=== PATIENT | female | born 1995 | race Caucasian/White ===

== ENCOUNTER → 2019-09-10 12:15 | Outpatient (BNVA) | payer OTHER, SELFPAY | PROVIDERS: PCP Nurse Practitioner; Visit Provider Nurse Practitioner | DX: S63.501A Unspecified sprain of right wrist, initial encounter (principal); X50.9XXA Other and unspecified overexertion or strenuous movements or postures, initial encounter; Y99.0 Civilian activity done for income or pay; M25.531 Pain in right wrist | CPT/HCPCS: 73110 ==

== ENCOUNTER → 2019-11-07 10:19 | Outpatient (BNVA) | payer OTHER, SELFPAY | PROVIDERS: PCP Nurse Practitioner; Visit Provider Counselor Professional | DX: F31.32 Bipolar disorder, current episode depressed, moderate (principal); F41.1 Generalized anxiety disorder | CPT/HCPCS: 90834 ==

== ENCOUNTER → 2019-11-13 09:13 | Outpatient (BNVA) | payer SELFPAY | PROVIDERS: PCP Nurse Practitioner; Visit Provider Psychiatry & Neurology Psychiatry | DX: F31.81 Bipolar II disorder (principal) | CPT/HCPCS: 99204 ==

== ENCOUNTER → 2019-11-14 13:11 | Outpatient (BNVA) | payer SELFPAY | PROVIDERS: PCP Nurse Practitioner; Visit Provider Counselor Professional | DX: F31.81 Bipolar II disorder (principal) | CPT/HCPCS: 90832 ==

== ENCOUNTER → 2019-11-22 09:06 | Outpatient (BNVA) | payer SELFPAY | PROVIDERS: PCP Nurse Practitioner; Visit Provider Counselor Professional | DX: F31.81 Bipolar II disorder (principal) | CPT/HCPCS: 90834 ==

== ENCOUNTER → 2019-11-30 08:25 | Outpatient (BNVA) | payer SELFPAY | PROVIDERS: PCP Nurse Practitioner; Visit Provider Counselor Professional | DX: F31.81 Bipolar II disorder (principal) | CPT/HCPCS: 90834 ==

== ENCOUNTER → 2019-12-01 08:29 | Outpatient (BNVA) | payer SELFPAY | PROVIDERS: PCP Nurse Practitioner; Visit Provider Psychiatry & Neurology Psychiatry | DX: F31.81 Bipolar II disorder (principal) | CPT/HCPCS: 99213 ==

== ENCOUNTER → 2020-01-10 07:58 | Outpatient (BNVA) | payer SELFPAY | PROVIDERS: PCP Nurse Practitioner; Visit Provider Psychiatry & Neurology Psychiatry | DX: F31.81 Bipolar II disorder (principal) | CPT/HCPCS: 99214 ==

== ENCOUNTER → 2020-03-28 08:14 | Outpatient (BNVA) | payer SELFPAY | PROVIDERS: PCP Nurse Practitioner; Visit Provider Psychiatry & Neurology Psychiatry | DX: F31.81 Bipolar II disorder (principal); F60.3 Borderline personality disorder | CPT/HCPCS: 99214 ==

== ENCOUNTER → 2020-07-03 11:26 | Outpatient (BNVA) | payer OTHER, SELFPAY | PROVIDERS: PCP Nurse Practitioner; Visit Provider Nurse Practitioner Family | DX: Z11.59 Encounter for screening for other viral diseases (principal); J06.9 Acute upper respiratory infection, unspecified | CPT/HCPCS: 87635 ==

== ENCOUNTER 2020-12-08 19:33 | Emergency (ER) | payer SELFPAY ==
[2020-12-08 19:38] VITALS: BP 155/115; PULSE 100; RESP 18; TEMP 36.6; O2SAT 97; BMI 38.7
[2020-12-08 19:45] VITALS: BP 128/87; PULSE 97; RESP 16; O2SAT 95
--- NOTE | 2020-12-08 19:49 | W.ED.ABDPA2 ---
HPI - Abdominal Pain General: Chief Complaint: Abdominal Pain Stated Complaint: UPPER ABD PAIN/UNDER L BREAST--SENT BY [facility] [place] Time Seen by Provider: 12/08/20 19:38 Source: patient Mode of arrival: ambulatory Limitations: no limitations History of Present Illness: HPI narrative: Patient is a 25-year-old female who presents to ED today after she was sent here from urgent care for further evaluation for left-sided abdominal pain. Patient tells me pain has been present over the past 2 to 3 weeks. She feels like pain is progressively worsening. She is not having any nausea or vomiting. She had a few episodes of non-bloody diarrhea a few days ago but none since. She has otherwise had normal bowel movements. She reports low-grade fevers of 99.0. She reports some mild dysuria at the start of her urine stream but states this improves midstream. She has not noticed any hematuria. She is not complaining of flank pain. UA at urgent care did not look suspicious for UTI. She denies vaginal bleeding, vaginal discharge, vaginal odor. Previous history of tubal ligation. MD elicited complaint: abdominal pain Pertinent past history: none Onset (ago): week(s) Pain Consistency: constant Location: LUQ, LLQ and Other (lower abdomen ) Exacerbating factors: nothing Relieving factors: nothing Associated Symptoms: Reports diarrhea (few episodes several days ago but none since), dysuria (at start of stream but improves) and fever(s) (reports low grade 99.0); Denies chills, heartburn, hematochezia, hematuria, hematemesis, melena, nausea, syncope and vomiting Related Data: Patient : No Review of Systems Const: Reports: fever(s) (reports low grade 99.0); Denies: chills, body aches, fatigue or malaise ENMT: Denies: throat pain or odynophagia Card: Denies: chest pain, palpitations, irregular heart rhythm, edema, swelling of feet/ankles, lightheadedness, syncope, pre-syncope, dyspnea on exertion or orthopnea Resp: Denies: dyspnea, productive cough, non-productive cough, wheezing, pain on inspiration, hemoptysis or chest congestion GI: Reports: abdominal pain and diarrhea (few episodes several days ago but none since); Denies: nausea, vomiting, hematemesis, heartburn, pain on defecation, hematochezia or melena : Reports: dysuria (at start of stream but improves); Denies: flank pain, difficulty voiding, urinary frequency, hematuria, genital lesions, genital pruritis, vaginal odor, vaginal bleeding, vaginal discharge or pelvic pain Musc: Denies: neck pain, back pain, extremity pain, extremity swelling, joint pain or joint swelling Skin/Breast: Denies: rash Neuro: Denies: headache(s) or dizziness PFSH ED PFSH: Social History (Updated 09/20/19 @ 08:01 by Seema Dozier LPN) Smoking and tobacco status: never smoked Alcohol intake: never 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 Female Reproductive History: : 3 Physical Exam Const: COMMON NORMALS: no acute distress, patient oriented x3, no limitations and alert GENERAL APPEARANCE: cooperative NUTRITIONAL APPEARANCE: obese ORIENTATION/CONSCIOUSNESS: Yes awake, Yes oriented to person, Yes oriented to place and Yes oriented to time HENMT: COMMON NORMALS: normocephalic and atraumatic HEAD & SCALP: normocephalic and atraumatic Chest: COMMONS NORMALS: normal inspection of the chest and normal palpation of entire chest wall Resp: COMMON NORMALS: normal respiratory effort and clear to auscultation bilaterally AUSCULTATION: clear to auscultation bilaterally Cardio: COMMON NORMALS: regular rate and regular rhythm RATE: regular rate RHYTHM: regular rhythm GI: COMMON NORMALS: Normal to inspection, nondistended, normoactive bowel sounds present, Soft to palpation, No hepatosplenomegaly present and no masses INSPECTION: Yes normal to inspection AUSCULTATION: Yes normoactive bowel sounds PALPATION: Yes Soft to palpation, Yes Tenderness to palpation present (GI) Details: LLQ and LUQ and Yes No hepatosplenomegaly present : COMMON NORMALS: Yes no CVA tenderness BLADDER/KIDNEY EXAM: Yes no CVA tenderness Back/Pelvis: COMMON NORMALS: no CVA tenderness, thoracic and lumbar spine normal to inspection, no thoracic nor lumbar tenderness and thoraco-lumbar ROM normal Extremity: COMMON NORMALS: normal to inspection GENERAL: Yes normal exam except as noted Neuro: COMMON NORMALS: patient oriented x3 SENSORIUM/ORIENTATION: Yes alert, Yes oriented to person, Yes oriented to place and Yes oriented to time Skin: COMMON NORMALS: no rashes or lesions noted GENERAL SKIN EXAM: no rashes or lesions noted Course Vital Signs: Vital signs: Vital Signs Temperature 97.8 F 12/08/20 19:38 Pulse Rate 85 12/08/20 21:04 Respiratory Rate 14 12/08/20 21:04 Blood Pressure 134/71 12/08/20 21:04 Pulse Oximetry 98 12/08/20 21:04 MDM - Abdominal Pain MDM Narrative: Medical decision making narrative: Patient's vital signs are stable. She does not appear in any acute distress. Labs and urine are unremarkable. CT scan showing no acute intra-abdominal/pelvic pathology. She is stable for discharge with follow-up with PCP. Strict return to ED precautions given. Lab Data: Attestation: I reviewed the patient's lab results. Labs: Lab Results 12/08/20 12/08/20 12/08/20 Range/Units 20:10 20:10 20:10 WBC 9.9 (4.0-10.0) 10^3/ uL RBC 5.30 (4.1-5.3) 10^6/u L Hgb 12.6 (11.5-15.3) g/dL Hct 40.9 (37.0-47.0) % MCV 77.2 L (81-99) fL MCH 23.8 L (28.0-34.0) pg MCHC 30.8 (30.0-36.0) g/dL RDW 15.5 H (12.1-15.1) % Plt Count 309 (130-400) 10^3/c mm MPV 11.5 H (7.4-10.4) fL Neut % (Auto) 54.4 % Lymph % (Auto) 37.2 % [place] % (Auto) 4.5 % Eos % (Auto) 3.2 % Baso % (Auto) 0.5 % Neut # (Auto) 5.38 (1.8-7.7) 10^3/u L Lymph # (Auto) 3.7 (0.8-4.8) 10^3/u L [place] # (Auto) 0.5 (0.2-0.9) 10^3/u L Eos # (Auto) 0.3 (0.0-0.8) 10^3/u L Baso # (Auto) 0.1 (0.0-0.1) 10^3/u L Nucleated RBC % (a uto) 0 % Nucleated RBCs # 0.0 /100WBC Sodium 143 (136-145) mmol/L Potassium 4.0 (3.5-5.1) mmol/L Chloride 107 (98-107) mmol/L Carbon Dioxide 27 (22-29) mmol/L Anion Gap 13.0 (5-19) BUN 10 (6-20) mg/dL Creatinine 0.5 (0.5-0.9) mg/dL GFR Calculation 149.1 H (90-130) mL/min Glucose 118 H (65-115) mg/dL Calculated Osmolal ity 296 H (285-295) mOsm/k g Calcium 9.3 (8.5-10.5) mg/dL Total Bilirubin 0.2 (0.15-1.2) mg/dL AST 26 (0-32) U/L ALT 35 H (0-33) U/L Alkaline Phosphata se 62 (35-105) IU/L Total Protein 8.0 (6.6-8.7) g/dL Albumin 4.8 (3.5-5.2) g/dL Globulin 3.2 (1.3-4.6) g/dL Lipase 45 (13-60) U/L HCG, Qual (Negative) Urine Color (Yellow) Urine Appearance (CLEAR) Urine pH (5-7) Ur Specific Gravit y (1.005-1.030) Urine Protein (Negative) Urine Glucose (UA) (Normal) Urine Ketones (Negative) Urine Blood (Negative) Urine Nitrate (Negative) Urine Bilirubin (Negative) Urine Urobilinogen (Negative) mg/dL Ur Leukocyte Pia ase (Negative) Urine HCG, Qual Cancelled 12/08/20 12/08/20 Range/Units 20:10 20:38 WBC (4.0-10.0) 10^3/ uL RBC (4.1-5.3) 10^6/u L Hgb (11.5-15.3) g/dL Hct (37.0-47.0) % MCV (81-99) fL MCH (28.0-34.0) pg MCHC (30.0-36.0) g/dL RDW (12.1-15.1) % Plt Count (130-400) 10^3/c mm MPV (7.4-10.4) fL Neut % (Auto) % Lymph % (Auto) % [place] % (Auto) % Eos % (Auto) % Baso % (Auto) % Neut # (Auto) (1.8-7.7) 10^3/u L Lymph # (Auto) (0.8-4.8) 10^3/u L [place] # (Auto) (0.2-0.9) 10^3/u L Eos # (Auto) (0.0-0.8) 10^3/u L Baso # (Auto) (0.0-0.1) 10^3/u L Nucleated RBC % (a uto) % Nucleated RBCs # /100WBC Sodium (136-145) mmol/L Potassium (3.5-5.1) mmol/L Chloride (98-107) mmol/L Carbon Dioxide (22-29) mmol/L Anion Gap (5-19) BUN (6-20) mg/dL Creatinine (0.5-0.9) mg/dL GFR Calculation (90-130) mL/min Glucose (65-115) mg/dL Calculated Osmolal ity (285-295) mOsm/k g Calcium (8.5-10.5) mg/dL Total Bilirubin (0.15-1.2) mg/dL AST (0-32) U/L ALT (0-33) U/L Alkaline Phosphata se (35-105) IU/L Total Protein (6.6-8.7) g/dL Albumin (3.5-5.2) g/dL Globulin (1.3-4.6) g/dL Lipase (13-60) U/L HCG, Qual Negative (Negative) Urine Color Yellow (Yellow) Urine Appearance Clear (CLEAR) Urine pH 5 (5-7) Ur Specific Gravit y 1.030 (1.005-1.030) Urine Protein Neg (Negative) Urine Glucose (UA) Norm (Normal) Urine Ketones Negative (Negative) Urine Blood Neg (Negative) Urine Nitrate Negative (Negative) Urine Bilirubin Neg (Negative) Urine Urobilinogen Norm (Negative) mg/dL Ur Leukocyte Pia ase Negative (Negative) Urine HCG, Qual Imaging Data ^: CT Abd/Pel: Radiologist's impression: [id number], [place] [address]KV Scan ReportSigned Patient: Vero Arvizu #: [id number]: [id number]#:[id number]/Sex: 25 / FADM Date: 12/08/20Loc: ERRoom/Bed:Attending Dr: Ordering Provider/Ordering MD: Dalila Medina Date of Service: 12/08/20 Procedure(s): CT abdomen pelvis w con* [id number] Accession Number(s): [id number] Report Number: [id number] PROCEDURE INFORMATION: Exam: CT Abdomen And Pelvis With Contrast Exam date and time: 12/08/2020 7:58 PM Age: 25 years old Clinical indication: Abdominal pain; Localized; Left lower quadrant (llq); Prior surgery; Surgery type: Tubal; Patient HX: C/O L sided abd pain x 3 weeks; Additional info: L abdominal pain TECHNIQUE: Imaging protocol: Computed tomography of the abdomen and pelvis with contrast. Radiation optimization: All CT scans at this facility use at least one of these dose optimization techniques: automated exposure control; mA and/or kV adjustment per patient size (includes targeted exams where dose is matched to clinical indication); or iterative reconstruction. Contrast material: OMNI 300; Contrast volume: 95 ml; Contrast route: INTRAVENOUS (IV); COMPARISON: US pelvic with transvaginal 02/14/2017 8:33 AM RADIATION DOSE METRICS: Total DLP (mGy-cm): 1769.03 FINDINGS: Mediastinal space: A small hiatal hernia is present. Liver: Normal. No mass. Gallbladder and bile ducts: Normal. No calcified stones. No ductal dilation. Pancreas: Normal. No ductal dilation. Spleen: A small accessory splenule is noted in the left upper quadrant. The spleen is unremarkable. Adrenal glands: Normal. No mass. Kidneys and ureters: Normal. No hydronephrosis. Stomach and bowel: Unremarkable. No obstruction. No mucosal thickening. Appendix: No evidence of appendicitis. Intraperitoneal space: Unremarkable. No free air. No significant fluid collection. Vasculature: Unremarkable. No abdominal aortic aneurysm. Lymph nodes: Unremarkable. No enlarged lymph nodes. Urinary bladder: There is thickening of the urinary bladder wall, likely secondary to underdistention. No surrounding inflammatory changes seen. Reproductive: Unremarkable as visualized. Bones/joints: Unremarkable. No acute fracture. Soft tissues: Unremarkable. CT/CT abdomen pelvis w con* [id number] IMPRESSION: No acute intra-abdominal or intrapelvic pathology. Radiation Dose CTDIVOL = (mGy): DLP = 1769.03 (mGy-cm) Dictated By:Chavez Torresed By:Jimenez Torres Date/Time:12/08/202127DD/ 25 Discharge Plan Discharge Patient Disposition: Home Clinical Impression: Abdominal pain of unknown cause Condition: Stable Discharge Orders: Discharge ED (Routine); Ordered 12/08/20 Ordered By: Dalila Medina Patient Instructions: Abdominal Pain (ED) Activity Restrictions/Additional Instructions: As discussed please follow-up with your primary care provider for continued discomfort. You may return to the emergency department at anytime for worsening or severe pain, fevers, repetitive episodes of vomiting or diarrhea, bloody vomit or stools, or any other concerns you may have. I hope you begin to feel better soon. Coding Level of Care Code ED Mechanical Engineering Specialist for Johnyg Fwd Exam Comprehensive
[2020-12-08 20:20] LABS: Basophils # 0.1 10^3/uL (0.0-0.1); Basophils % 0.5 %; Eosinophils # 0.3 10^3/uL (0.0-0.8); Eosinophils % 3.2 %; Hematocrit 40.9 % (37.0-47.0); Hemoglobin 12.6 g/dL (11.5-15.3); Lymphocytes # 3.7 10^3/uL (0.8-4.8); Lymphocytes % 37.2 %; Mean Corpuscular HGB Conc 30.8 g/dL (30.0-36.0); Mean Corpuscular Hemoglobin 23.8 pg (28.0-34.0); Mean Corpuscular Volume 77.2 fL (81-99); Mean Platelet Volume 11.5 fL (7.4-10.4); Monocytes # 0.5 10^3/uL (0.2-0.9); Monocytes % 4.5 %; Neutrophils # 5.38 10^3/uL (1.8-7.7); Neutrophils % 54.4 %; Nucleated Red Blood Cells % 0 %; Platelet Count 309 10^3/cmm (130-400); Red Cell Distribution Width 15.5 % (12.1-15.1); White Blood Count 9.9 10^3/uL (4.0-10.0)
[2020-12-08 20:33] LABS: Alanine Aminotransferase 35 U/L (0-33); Albumin Level 4.8 g/dL (3.5-5.2); Alkaline Phosphatase 62 IU/L (35-105); Aspartate Amino Transferase 26 U/L (0-32); Blood Urea Nitrogen 10 mg/dL (6-20); Calcium 9.3 mg/dL (8.5-10.5); Carbon Dioxide 27 mmol/L (22-29); Chloride 107 mmol/L (98-107); Globulin 3.2 g/dL (1.3-4.6); Glomerular Filtration Rate 149.1 mL/min (90-130); Glucose 118 mg/dL (65-115); Lipase 45 U/L (13-60); Osmolality Calculated 296 mOsm/kg (285-295); Sodium 143 mmol/L (136-145); Total Bilirubin 0.2 mg/dL (0.15-1.2)
[2020-12-08 20:45] LABS: HCG, Serum Qual Negative (Negative)
[2020-12-08 20:47] LABS: Slide Review Slide Review Perform
[2020-12-08] MEDS: iohexol 300 mg/mL 100 mL Btl IV (20:52)
[2020-12-08 20:57] LABS: Add Urine Microscopic? NO; Charge for UA Resulting for Rev
[2020-12-08 20:58] LABS: Urine Appearance Clear (CLEAR); Urine Color Yellow (Yellow); pH Urine 5 (5-7)
[2020-12-08 20:59] LABS: Bilirubin Urine Neg (Negative); Blood Urine Neg (Negative); Glucose Urine UA Norm (Normal); Ketones Urine Negative (Negative); Leukocyte Esterase Urine Negative (Negative); Nitrate Urine Negative (Negative); Protein Urine Neg (Negative); Urobilinogen Urine Norm (Negative)
[2020-12-08 21:04] VITALS: BP 134/71; PULSE 85; RESP 14; O2SAT 98
[2020-12-08 22:12] VITALS: PULSE 78; RESP 15; O2SAT 96
[2020-12-08 22:15] VITALS: BP 132/80; PULSE 79; RESP 17; O2SAT 98
== END 2020-12-08 22:17 | disposition home or self-care (01) ==
PROVIDERS: Emergency Provider Physician Assistant
DX: R10.9 Unspecified abdominal pain (principal)
CPT/HCPCS: 74177; 80053; 81000; 81003; 83690; 84703; 85025; 99283; Q9967

== ENCOUNTER → 2021-07-06 14:28 | Outpatient (BNVA) | payer MEDICAID, SELFPAY | PROVIDERS: Visit Provider Family Medicine | DX: N39.0 Urinary tract infection, site not specified (principal); Z20.2 Contact with and (suspected) exposure to infections with a predominantly sexual mode of transmission; R30.0 Dysuria | CPT/HCPCS: 81000; 87491; 87591; 87661 ==

== ENCOUNTER 2021-10-28 14:25 | Emergency (ER) | payer SELFPAY ==
[2021-10-28 14:32] VITALS: BP 156/100; PULSE 91; RESP 18; TEMP 36.4; O2SAT 98; BMI 40.3
--- NOTE | 2021-10-28 14:36 | ED_ITS ---
HPI - Back Pain/Injury General: Chief Complaint: Back Pain/Injury Stated Complaint: severe back pain Time Seen by Provider: 10/28/21 14:28 Source: patient Mode of arrival: ambulatory Limitations: no limitations History of Present Illness: Patient is a 26-year-old female presents to ED today with complaint of mid back pain. Patient states 3 days ago she was jumping on the trampoline with her children and states when she she came down she felt like her back stretched out and then snapped back. Patient states since then she has been having intermittent pains to her mid back worse with movement. She has no radicular symptoms. No numbness, tingling, loss of sensation. She does not complain of chest pain or abdominal pains. Denies lightheadedness, dizziness. MD elicited complaint: back pain Onset (ago): day(s) Timing: intermittent Severity: moderate Similar Symptoms Previously: No Location: thoracic spine Radiation: none Exacerbating factors: movement Relieving factors: immobilization and sitting upright Associated symptoms: Reports no associated symptoms; Deny abdominal pain, chills, difficulty walking, dysuria, fatigue, fever(s), hematuria or syncope Work related injury: No Review of Systems Const: Denies: fever(s), chills, body aches, fatigue or malaise Eyes: Denies: change in vision Card: Denies: chest pain, palpitations, irregular heart rhythm, edema, lightheadedness, syncope or pre-syncope Resp: Denies: dyspnea GI: Denies: abdominal pain : Denies: flank pain, dysuria or hematuria Musc: Reports: back pain; Denies: neck pain, extremity pain or joint pain Skin/Breast: Denies: rash Neuro: Denies: headache(s), numbness in extremities, weakness in extremities, sensory changes or difficulty walking PFS ED PFSH: Social History Smoking and tobacco status: never smoked Alcohol intake: never 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 Physical Exam Const: COMMON NORMALS: no acute distress, patient oriented x3, no limitations and alert GENERAL APPEARANCE: cooperative NUTRITIONAL APPEARANCE: obese ORIENTATION/CONSCIOUSNESS: Yes awake, Yes oriented to person, Yes oriented to place and Yes oriented to time HENMT: COMMON NORMALS: normocephalic and atraumatic HEAD & SCALP: normocephalic and atraumatic Neck/C-Spine: COMMON NORMALS: full ROM GENERAL: Yes normal visual inspection CERVICAL SPINE: No Cervical spine tenderness and No Paracervical muscle tenderness Resp: COMMON NORMALS: normal respiratory effort and clear to auscultation bilaterally AUSCULTATION: clear to auscultation bilaterally Cardio: COMMON NORMALS: regular rate and regular rhythm RATE: regular rate RHYTHM: regular rhythm : COMMON NORMALS: Yes no CVA tenderness BLADDER/KIDNEY EXAM: Yes no CVA tenderness Back/Pelvis: COMMON NORMALS: no CVA tenderness THORACIC SPINE/UPPER BACK: Yes normal to inspection, Yes pain with ROM, Yes thoracic spinal tenderness, Yes paraspinal muscle tenderness and No paraspinal muscle spasm LUMBAR SPINE/LOWER BACK: Yes normal to inspection PELVIS: Yes buttocks normal SACROILIAC JOINTS: Yes SI joints normal BACK IMAGE (FEMALE): 1. TTP-palpation directly reproduces patient's pain Extremity: COMMON NORMALS: normal to inspection and full ROM GENERAL: Yes normal exam except as noted Neuro: BRANT COMA SCALE: document GCS findings Brant coma scale eye opening: Spontaneous Brant coma scale verbal response: Orientated Brant coma scale motor response: Obey commands [place] coma scale total score: 15 COMMON NORMALS: patient oriented x3, moves all extremities, no focal motor deficits, no sensory deficits noted and gait normal SENSORIUM/ORIENTATION: Yes alert, Yes oriented to person, Yes oriented to place and Yes oriented to time Skin: COMMON NORMALS: no rashes or lesions noted GENERAL SKIN EXAM: no rashes or lesions noted Course Vital Signs: Vital signs: Vital Signs Temperature 97.6 F 10/28/21 14:32 Pulse Rate 91 10/28/21 14:54 Respiratory Rate 18 10/28/21 14:54 Blood Pressure 156/100 10/28/21 14:54 Pulse Oximetry 98 10/28/21 14:54 MDM - Back Pain/Injury Medical Decision Making XRs negative. We will treat for musculoskeletal thoracic sprain. Strict return to ED precautions given. Recommend follow-up with PCP in 3 to 5 days if no improvement. Also discussed alternating ice/heat for discomfort. Labs Radiology Impressions Lumbar Spine X-Ray 10/28/21 15:15 IMPRESSION: No acute findings. Thoracic Spine X-Ray 10/28/21 15:15 IMPRESSION: No acute findings. Discharge Plan Discharge Patient Disposition: Home Clinical Impression: Strain of mid-back Qualifiers: Encounter type: initial encounter Qualified Code(s): S29.012A - Strain of muscle and tendon of back wall of thorax, initial encounter Condition: Stable Prescriptions: New cyclobenzaprine 10 mg tablet 10 mg PO TID Qty: 14 0RF diclofenac sodium 50 mg tablet,delayed release (DR/EC) 50 mg PO Q12H PRN (Reason: pain) Qty: 20 0RF Medrol ([place]) 4 mg tablets,dose pack See Rx Instructions .ROUTE .COMPLEX Qty: 21 0RF Rx Instructions: orally per package directions No Action fluconazole [Diflucan] 150 mg tablet 150 mg PO Q3D Qty: 2 0RF Rx Instructions: start if symptoms persist beyond 48 hours, may repeat second dose 72 hrs after first dose if symptoms persist sulfamethoxazole-trimethoprim [Bactrim DS] 800-160 mg tablet 1 tab PO BID 4 Days Qty: 8 0RF Rx Instructions: start if symptoms persist beyond 48 hours azithromycin 500 mg tablet 1,000 mg PO ONCE 1 Days Qty: 2 0RF Discharge Orders: Discharge ED (Routine); Ordered 10/28/21 Ordered By: Dalila Medina Stand Alone Forms: Work/School Release Coding Level of Care Code ED Milking System Installer for Robert Liu
[2021-10-28 14:54] VITALS: BP 156/100; PULSE 91; RESP 18; O2SAT 98
--- NOTE | 2021-10-28 15:15 | XRR_ITS ---
PROCEDURE INFORMATION: Exam: XR Thoracic Spine Exam date and time: 10/28/2021 3:34 PM Age: 26 years old Clinical indication: Injury or trauma; Blunt trauma (contusions or hematomas) and sprain or strain; Injury details: PT was jumping on trampoline4 days ago and when she went up in the air it felt as if her mid back , when coming back down and upon landing it felt as if her mid back was compressing together TECHNIQUE: Imaging protocol: XR of the thoracic spine. Views: 3 views. COMPARISON: CT abdomen pelvis w con* [id number] 12/08/2020 9:05 PM FINDINGS: Bones/joints: Normal. No acute fracture. Normal alignment. Soft tissues: Unremarkable. XR/XR thoracic spine 3V* [id number] IMPRESSION: No acute findings.
--- NOTE | 2021-10-28 15:15 | XRR_ITS ---
PROCEDURE INFORMATION: Exam: XR Lumbosacral Spine Exam date and time: 10/28/2021 3:34 PM Age: 26 years old Clinical indication: Injury or trauma; Crushing and sprain or strain, lumbar ligaments; Injury details: PT was jumping on trampoline4 days ago and when she went up in the air it felt as if her mid back , when coming back down and upon landing it felt as if her mid back was compressing together TECHNIQUE: Imaging protocol: XR of the lumbosacral spine. Views: 2 or 3 views. COMPARISON: [place] [id number] 12/03/2014 10:02 PM FINDINGS: Bones/joints: Normal. No acute fracture. Normal alignment. Soft tissues: Unremarkable. XR/XR lumbar spine 2-3V* [id number] IMPRESSION: No acute findings.
[2021-10-28 16:45] VITALS: PULSE 94; RESP 16; O2SAT 96
--- NOTE | 2021-10-29 10:25 | DCPLANNER ---
Addendum entered by Mara Wall 11/26/21 15:28: Patient had a follow up appointment scheduled for 10.31.21 was rescheduled. Original Note: manager quantitative had message to speak with patient about getting established with a primary care physician. manager quantitative spoke with patient, she stated that she would like to get established with a female physician. manager quantitative called the office of BALANCE CLERK, Juliana Schaffer, spoke with Betty, gave clinic patients information. manager quantitative called patient and gave patient the appointment information.
== END 2021-10-28 16:46 | disposition home or self-care (01) ==
PROVIDERS: Emergency Provider Physician Assistant
DX: S29.012A Strain of muscle and tendon of back wall of thorax, initial encounter (principal); X50.9XXA Other and unspecified overexertion or strenuous movements or postures, initial encounter; Y93.44 Activity, trampolining
CPT/HCPCS: 72072; 72100; 99282

== ENCOUNTER 2022-05-08 16:02 | Outpatient (CLI) | payer MEDICAID, SELFPAY ==
--- NOTE | 2022-05-08 16:15 | XR_ITS ---
WS: [id number] XR thoracic spine 3V* [id number] REASON FOR EXAM: Chronic Back Pain FINDINGS: Mild mid thoracic scoliosis convex right. No vertebral body abnormality. Intervertebral disc spaces are relatively well-preserved. XR/XR thoracic spine 3V* [id number] IMPRESSION: Mild thoracic scoliosis without focal abnormality. Thoracic spine is unchanged compared to 10/28/2021.
--- NOTE | 2022-05-08 16:15 | XR_ITS ---
WS: [id number] XR lumbar spine 2-3V* [id number] REASON FOR EXAM: Chronic Back Pain FINDINGS: Mild rotatory scoliosis convex right. Mild straightening of the normal lordosis of the lumbar spine. No significant vertebral body abnormality. Intervertebral disc spaces are relatively well-preserved. No significant listhesis. XR/XR lumbar spine 2-3V* [id number] IMPRESSION: Mild rotatory scoliosis and straightening of the normal lordosis of the lumbar spine. Examination is unchanged compared to 10/28/2021.
== END 2022-05-08 16:03 | disposition home or self-care (01) ==
LOC: RAD 16:08
PROVIDERS: PCP Family Medicine; Visit Provider Family Medicine
DX: G89.29 Other chronic pain (principal); M41.84 Other forms of scoliosis, thoracic region; M41.86 Other forms of scoliosis, lumbar region
CPT/HCPCS: 72072; 72100

== ENCOUNTER → 2023-03-25 16:10 | Outpatient (BNVA) | payer MEDICAID, SELFPAY | PROVIDERS: PCP Family Medicine; Referring Provider Nurse Practitioner; Visit Provider Nurse Practitioner Women's Health | DX: N92.6 Irregular menstruation, unspecified (principal); Z12.4 Encounter for screening for malignant neoplasm of cervix | CPT/HCPCS: 84146; 84402; 84702; 88175 ==

== ENCOUNTER → 2023-04-07 11:06 | Outpatient (BNVA) | payer MEDICAID, SELFPAY | PROVIDERS: PCP Family Medicine; Visit Provider Nurse Practitioner Women's Health | DX: N92.6 Irregular menstruation, unspecified (principal); N83.8 Other noninflammatory disorders of ovary, fallopian tube and broad ligament | CPT/HCPCS: 76830 ==

== ENCOUNTER → 2023-05-12 10:00 | Outpatient (BNVA) | payer MEDICAID, SELFPAY | PROVIDERS: PCP Family Medicine; Visit Provider Nurse Practitioner Women's Health | DX: Z20.2 Contact with and (suspected) exposure to infections with a predominantly sexual mode of transmission (principal); Z11.3 Encounter for screening for infections with a predominantly sexual mode of transmission; N76.0 Acute vaginitis | CPT/HCPCS: 87491; 87591; 87806 ==

== ENCOUNTER → 2023-05-13 09:16 | Outpatient (BNVA) | payer MEDICAID, SELFPAY | PROVIDERS: PCP Family Medicine; Visit Provider Nurse Practitioner Women's Health | DX: E28.2 Polycystic ovarian syndrome (principal) | CPT/HCPCS: 86592; 86803; 87340; 87806 ==

== ENCOUNTER → 2023-06-25 15:00 | Outpatient (BNVA) | payer MEDICAID, SELFPAY | PROVIDERS: PCP Family Medicine; Visit Provider Nurse Practitioner Women's Health | DX: Z20.2 Contact with and (suspected) exposure to infections with a predominantly sexual mode of transmission (principal) | CPT/HCPCS: 87491; 87591 ==

== ENCOUNTER → 2023-10-29 14:58 | Outpatient (BNVA) | payer MEDICAID, SELFPAY | PROVIDERS: PCP Family Medicine; Visit Provider Obstetrics & Gynecology | DX: Z11.3 Encounter for screening for infections with a predominantly sexual mode of transmission (principal); N93.9 Abnormal uterine and vaginal bleeding, unspecified | CPT/HCPCS: 87491; 87591 ==

== ENCOUNTER 2023-11-30 09:29 | Observation (INO) | payer MEDICAID, SELFPAY ==
--- NOTE | 2023-11-25 10:44 | ANES.PREANE2 ---
Pre-Anesthetic Assessment Height/Weight: Height 1.68 m Operation Date: 11/30/23 09:00 Proposed Procedures p Total vaginal hysterectomy 73423,N93.9(Not Applicable) - Filiberto Edwards MD Social No alcohol and No tobacco Exam alert, oriented x 3, clear to auscultation bilaterally and regular rate & rhythm Airway Submandibular: within normal limits Cervical ROM: within normal limits Mallampati: Class I History/ROS No significant history except as noted Pulmonary None reported CV/HEM None reported None reported Hepatic None reported Metabolic Morbid Obesity [facility] [place] None reported Anesthetic Plan ASA status: 3 Anesthesia: General Risk of > 500 ml blood loss (7ml/kg in children): Yes, adequate IV access and fluids planned Medications/Allergies Home Medications Medication Instructions Recorded Confirmed Last Taken Type ibuprofen 800 mg tablet 800 mg PO TID pelvic pain, AUB #90 10/29/23 11/22/23 Unknown Rx tabs drospirenone 3 mg-ethinyl 1 tab PO DAILY 11/25/23 1 Day Ago History estradiol 0.03 mg tablet ~11/24/23 Allergies Allergy/AdvReac Type Severity Reaction Status Date / Time No Known Allergies Allergy Verified 11/25/23 10:08 [facility] Anesthesia Medical History Abnormal uterine bleeding (AUB) Hypertriglyceridemia No pertinent past medical history neghx: htn,thyroid,dvt/pe PCP: Tiera De La Rosa Pre-diabetes Surgical History History of tonsillectomy and adenoidectomy H/O tubal ligation (~2017) [place] [facility] [place] Family History Grandmother Breast cancer Maternal Diabetes Ovarian cancer maternal Mother Heart disease Hyperlipidemia Hypertension Thyroid disease Brother Hypertension Sister Hypertension Hyperlipidemia Grandfather Colon cancer maternal Denies family history of Prostate cancer Uterine cancer Stroke Data Anesthesia Cardiac Studies: No Data to Display
[2023-11-25 10:49] LABS: Add Urine Microscopic? NO; Charge for UA Resulting for Rev
[2023-11-25 10:52] LABS: Basophils # 0.1 10^3/uL (0.0-0.1); Basophils % 0.6 %; Eosinophils # 0.3 10^3/uL (0.0-0.8); Eosinophils % 3.5 %; Hematocrit 35.3 % (36-47); Lymphocytes # 3.1 10^3/uL (0.8-4.8); Lymphocytes % 39.5 %; Mean Corpuscular HGB Conc 31.2 g/dL (30-55); Mean Corpuscular Hemoglobin 23.2 pg (27-33); Mean Corpuscular Volume 74.3 fl (85-98); Mean Platelet Volume 10.6 fL (7.4-10.4); Monocytes # 0.4 10^3/uL (0.2-0.9); Monocytes % 5.5 %; Neutrophils # 3.93 10^3/uL (1.8-7.7); Neutrophils % 50.5 %; Nucleated Red Blood Cells % 0 %; Platelet Count 381 10^3/cmm (157-399); Red Blood Count 4.75 10^6/uL (3.85-5.65); Red Cell Distribution Width 14.3 % (12.1-15.1); White Blood Count 7.79 10^3/uL (3.29-11.43)
[2023-11-25 10:56] LABS: Bilirubin Urine Neg (Negative); Blood Urine Neg (Negative); Glucose Urine UA Norm (Normal); Ketones Urine Negative (Negative); Leukocyte Esterase Urine Negative (Negative); Nitrate Urine Negative (Negative); Protein Urine Neg (Negative); Specific Gravity, Urine 1.025 (1.005-1.030); Urine Appearance Clear (CLEAR); Urine Color Yellow (Yellow); Urobilinogen Urine Norm (Negative); pH Urine 6 (5-7)
[2023-11-25 11:11] LABS: Alanine Aminotransferase 10 U/L (0-33); Albumin Level 3.9 g/dL (3.5-5.2); Alkaline Phosphatase 59 U/L (35-105); Aspartate Amino Transferase 12 U/L (0-32); Potassium 3.9 mmol/L (3.5-5.1); Sodium 142 mmol/L (136-145)
[2023-11-25 11:22] LABS: Anion Gap 15.9 (5-19); Blood Urea Nitrogen 11 mg/dL (6-20); Calcium 9.2 mg/dL (8.5-10.5); Carbon Dioxide 23 mmol/L (22-29); Chloride 108 mmol/L (98-107); Globulin 3.4 g/dL (1.3-4.6); Glomerular Filtration Rate 118.2 mL/min (90-130); Glucose 120 mg/dL (65-115); Osmolality Calculated 297 mOsm/kg (285-295); Total Bilirubin 0.2 mg/dL (0.15-1.2); Total Protein 7.2 g/dL (6.6-8.7)
[2023-11-30] VITALS (18 sets, daily range): BP systolic 103–145; BP diastolic 64–91; PULSE 75–114; RESP 12–23; TEMP 36.3–37.2; O2SAT 90–98; BMI 41.1
[2023-11-30] MEDS: scopolamine 1.5 Patch 1 PATCH TRANSDERMA (06:37)
[2023-11-30] MEDS: sodium chloride 0.9% 500 ML IV (06:38)
[2023-11-30] MEDS: sodium chloride 0.9% 1,000 ML 30 ML IV (06:38)
--- NOTE | 2023-11-30 06:43 | W.PM.OPSUD ---
Surgery/Procedure H&P Update DATE OF PROCEDURE: November 30, 2023 DATE H&P PERFORMED: 11/21/24 H&P UPDATE INFORMATION: I have reviewed H&P completed within last 30 days, I have examined patient prior to procedure and No changes to prior documentation PREOP DIAGNOSIS: Abnormal uterine bleeding, dysmenorrhea, PLANNED PROCEDURE: Operation Date: 11/30/23 07:00 Proposed Procedures p Total vaginal hysterectomy 31828,N93.9(Not Applicable) - Filiberto Edwards MD
--- NOTE | 2023-11-30 06:57 | P.ANESUD_ITS ---
Pre-Anesthetic Update Pre-Anesthetic Assessment: Date of Surgery/Procedure: 11/30/23 Preop Vernell gnosis: Abnormal uterine bleeding, dysmenorrhea, Proposed Procedure: Operation Date: 11/30/23 07:00 Proposed Procedures p Total vaginal hysterectomy 54329,N93.9(Not Applicable) - Filiberto Edwards MD Any changes to Pre-Anesthetic Assessment?: No Last Intake: Intake Last Liquid Date 11/29/23 Last Liquid Time 19:00 Last Solid Date 11/29/23 Last Solid Time 19:00 Vitals: Temperature 97.4 F L 11/30/23 06:08 Temperature Source Temporal Artery S can 11/30/23 06:08 Pulse Rate 89 11/30/23 06:08 Respiratory Rate 18 11/30/23 06:08 Blood Pressure 136/86 11/30/23 06:08 Blood Pressure Roshni n 102 11/30/23 06:08 Pulse Oximetry 96 11/30/23 06:08 Oxygen Delivery Me thod Room Air 11/30/23 06:09 Exam: Pre-Anes Outpt Exam: alert, oriented x 3, clear to auscultation bilaterally and regular rate & rhythm Cardiac Studies: No Data to Display
[2023-11-30 06:59] LABS: OR HCG Qualitative Urine Negative (Negative)
[2023-11-30] MEDS: ceFAZolin 2,000 MG in sodium chloride 0.9% (plus) 50 ML 100 MG IV (07:00)
[2023-11-30] MEDS: lidocaine-epi 2% PF 1:200,000 20 mL SDV INJECTION (07:45)
--- NOTE | 2023-11-30 08:56 | P.OP_ITS ---
Operative Report Date of procedure: November 30, 2023 Pre-op diagnosis: Pelvic pain Dysmenorrhea Polycystic ovarian syndrome Post-op diagnosis: same Procedure done: Total vaginal hysterectomy Specimens removed/disposition: Uterus Surgeon: Filiberto Edwards MD Estimated blood loss (mL): 200 IV fluids (mL): 1,000 Urine output (mL): 300 Complications: none Findings: Enlarged uterus Procedure: After informed consent and risks, benefits, indications and alternatives reviewed with the patient was taken to the operating room. The patient was placed in dorsal lithotomy position prepped, and draped in the usual sterile fashion. The pre-procedure timeout verifying the correct patient, procedure, s ite and side, could not requirements was performed and acknowledge by the OR team. A Burger catheter was placed. A Bookwalter vaginal retractor was placed into the vagina in usual manner visualize the cervix. Cervix was grasped with a single tooth tenaculum and circumferentially infiltrated with 2% lidocaine with epinephrine. Then cervix was circumferentially incised with bovie and the bladder was dissected off the pubovesical cervical fascia anteriorly with a sponge stick and Metzenbaum scissors. The anterior peritoneal reflection was identified and the anterior cul-de-sac was entered sharply with Metzenbaum scissors. The same procedure was performed posteriorly and a posterior colpotomy was made through the posterior cul-de-sac space without difficulty and the posterior blade of the Bookwalter vaginal retractor was advanced posteriorly into the cul-de-sac. At this time, the left and right uterosacral ligaments were isolated and ligated with 0 Vicryl. The LigaSure device was placed over the uterosacral ligaments on either side and was then used in a serial fashion up through the cardinal ligaments bilaterally cross-clamped, cut, and sealed with the LigaSure device. Finally, the uterine arteries were cross-clamped, cut, sealed and ligated with the LigaSure device. Hemostasis was assured. The broad ligaments were then serially clamped, sealed and cut with the LigaSure device on both sides. Excellent hemostasis was visualized. Both cornua were clamped, sealed and cut with the LigaSure device. Then the pedicles were then suture ligated with excellent hemostasis. The uterus was excised and submitted for pathologic evaluation. No other abnormalities were noted in the pelvic cavity. Good hemostasis was assure on both sides. She was given Bludigo IV. The peritoneum was then closed in a pursestring fashion with 0 Vicryl suture. The vaginal cuff angles were closed with [id number] #0 Vicryl suture on both sides and transfixed with the ipsilateral cardinal and uterosacral ligaments. The remainder of the vaginal cuff was closed with #0 Vicryl in a running locked fashion. At this time, instruments were removed from the vagina at hemostasis assured. Burger catheter was noted yielding clear blue urine. The patient was taken out of dorsal lithotomy position and awakened from the general anesthesia. The patient tolerated the procedure well and was taken to the PACU recovery room in a stable condition. Sponge, lap, needle and instruments counts were correct x3.
[2023-11-30] MEDS: fentaNYL 50 mcg/mL INJ 2mL IVP (09:32)
--- NOTE | 2023-11-30 09:50 | ANE.PACU2 ---
Inpatient post-anesthesia follow up: Airway intact: Yes Vital signs: Temperature 99.0 F Pulse Rate 112 Respiratory Rate 17 Blood Pressure 112/70 Pulse Oximetry 95 Oxygen Delivery Me thod Room Air Oxygen Flow Rate 1 Fraction of Inspir ed Oxygen Hydration adequate: Yes Nausea and vomiting: No Pain level: 1 Mental status: Baseline
--- NOTE | 2023-11-30 10:11 | PC.NURSE ---
0955 - EDWIN Kennedy at bedside - VSS upon arrival to floor with axillary temp noted at 99.0
[2023-11-30] MEDS: ondansetron 2 mg/ML SDV 2 mL 4 MG IVP (10:22)
[2023-11-30] MEDS: HYDROcodone-acetaminophen 5-325 mg Tablet PO ×3 (10:23→23:36)
[2023-11-30] MEDS: ketorolac 30 mg/mL INJ IVP ×3 (10:23→21:24)
[2023-11-30] MEDS: dextrose 5%-lactated ringers 1,000 ML 125 ML IV ×2 (10:24→16:48)
[2023-11-30] MEDS: docusate sodium 100 mg Capsule PO (16:48)
[2023-12-01] VITALS: BP 110/66; PULSE 99; RESP 17; TEMP 36.8; O2SAT 96
[2023-12-01] MEDS: dextrose 5%-lactated ringers 1,000 ML 125 ML IV ×2 (00:53→08:03)
[2023-12-01] MEDS: acetaminophen 325 mg Tablet 650 MG PO (00:56)
[2023-12-01] MEDS: ketorolac 30 mg/mL INJ IVP (03:58)
[2023-12-01 04:00] VITALS: BP 118/70; PULSE 92; RESP 16; TEMP 36.8; O2SAT 97
[2023-12-01 05:45] LABS: Hematocrit 28.8 % (36-47); Mean Corpuscular HGB Conc 30.6 g/dL (30-55); Mean Corpuscular Hemoglobin 23.3 pg (27-33); Mean Corpuscular Volume 76.2 fl (85-98); Mean Platelet Volume 10.7 fL (7.4-10.4); Platelet Count 303 10^3/cmm (157-399); Red Blood Count 3.78 10^6/uL (3.85-5.65); Red Cell Distribution Width 14.4 % (12.1-15.1); White Blood Count 10.89 10^3/uL (3.29-11.43)
[2023-12-01 07:14] VITALS: BP 119/74; PULSE 78; RESP 15; TEMP 37; O2SAT 98
[2023-12-01] MEDS: HYDROcodone-acetaminophen 5-325 mg Tablet PO (08:00)
[2023-12-01] MEDS: docusate sodium 100 mg Capsule PO (08:00)
[2023-12-01] MEDS: ibuprofen 800 mg tablet PO (08:00)
--- NOTE | 2023-12-01 08:15 | P.DS_ITS ---
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 Arvizu is a 28 year old with a history of abnormal uterine bleeding unresponsive to medical management, dysmenorrhea, chronic pelvic pain and polycystic ovarian syndrome. She was admitted for a planned total vaginal hysterectomy. The total vaginal hysterectomy was performed without complication. Overnight observation was uneventful. She is afebrile and hemodynamically stable postoperative day 1. Tolerating diet well. Ambulating without difficulty. Physical Exam Narrative: GA: Alert and oriented ?3. HEENT: WNL. Heart: Regular rate and rhythm. Lungs: Clear to auscultation bilaterally. Abdomen: Bowel sounds present, nontender. 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 Extremities: No edema, no cyanosis, no calves pain. Urinary Catheter Management: Burger: Cath Placed During This Visit: yes Urinary Catheter Date of Insertion: 11/30/23 Urinary Catheter Time of Insertion: 07:31 History History History 3 Term 3 0 Miscarriages/Ectopic 0 Living Children 3 Discharge Data Studies Completed and Pending Pending at discharge Category Date Time Status Pathology: Surgical [PTH] Routine Pth 11/30/23 08:42 Received Laboratory Results WBC 10.89 10^3/uL (3.29-11.43) 12/01/23 05:33 RBC 3.78 10^6/uL (3.85-5.65) L 12/01/23 05:33 Hgb 8.80 g/dL (11.27-16.99) L 12/01/23 05:33 Hct 28.8 % (36-47) L 12/01/23 05:33 MCV 76.2 fl (85-98) L 12/01/23 05:33 MCH 23.3 pg (27-33) L 12/01/23 05:33 MCHC 30.6 g/dL (30-55) 12/01/23 05:33 RDW 14.4 % (12.1-15.1) 12/01/23 05:33 Plt Count 303 10^3/cmm (157-399) 12/01/23 05:33 MPV 10.7 fL (7.4-10.4) H 12/01/23 05:33 Neut % (Auto) 50.5 % 11/25/23 10:27 Lymph % (Auto) 39.5 % 11/25/23 10:27 [place] % (Auto) 5.5 % 11/25/23 10:27 Eos % (Auto) 3.5 % 11/25/23 10:27 Baso % (Auto) 0.6 % 11/25/23 10:27 Neut # (Auto) 3.93 10^3/uL (1.8-7.7) 11/25/23 10: Lymph # (Auto) 3.1 10^3/uL (0.8-4.8) 11/25/23 10: [place] # (Auto) 0.4 10^3/uL (0.2-0.9) 11/25/23 10: Eos # (Auto) 0.3 10^3/uL (0.0-0.8) 11/25/23 10:27 Baso # (Auto) 0.1 10^3/uL (0.0-0.1) 11/25/23 10: Nucleated RBC % (auto) 0 % 11/25/23 10: Nucleated RBCs # 0.0 /100WBC 11/25/23 10:27 Sodium 142 mmol/L (136-145) 11/25/23 10:27 Potassium 3.9 mmol/L (3.5-5.1) 11/25/23 10:27 Chloride 108 mmol/L (98-107) H 11/25/23 10:27 Carbon Dioxide 23 mmol/L (22-29) 11/25/23 10:27 Anion Gap 15.9 (5-19) 11/25/23 10:27 BUN 11 mg/dL (6-20) 11/25/23 10:27 Creatinine 0.6 mg/dL (0.5-0.9) 11/25/23 10:27 GFR Calculation 118.2 mL/min (90-130) 11/25/23 10:27 Glucose 120 mg/dL (65-115) H 11/25/23 10:27 Calculated Osmolality 297 mOsm/kg (285-295) H 11/25/23 10:27 Calcium 9.2 mg/dL (8.5-10.5) 11/25/23 10:27 Total Bilirubin 0.2 mg/dL (0.15-1.2) 11/25/23 10:27 AST 12 U/L (0-32) 11/25/23 10:27 ALT 10 U/L (0-33) 11/25/23 10:27 Alkaline Phosphatase 59 U/L (35-105) 11/25/23 10:27 Total Protein 7.2 g/dL (6.6-8.7) 11/25/23 10:27 Albumin 3.9 g/dL (3.5-5.2) 11/25/23 10: Globulin 3.4 g/dL (1.3-4.6) 11/25/23 10:27 Urine Color Yellow (Yellow) 11/25/23 10:27 Urine Appearance Clear (CLEAR) 11/25/23 10:27 Urine pH 6 (5-7) 11/25/23 10:27 Ur Specific [place] 1.025 (1.005-1.030) 11/25/23 10:27 Urine Protein Neg (Negative) 11/25/23 10:27 Urine Glucose (UA) Norm (Normal) 11/25/23 10:27 Urine Ketones Negative (Negative) 11/25/23 10:27 Urine Blood Neg (Negative) 11/25/23 10:27 Urine Nitrate Negative (Negative) 11/25/23 10:27 Urine Bilirubin Neg (Negative) 11/25/23 10:27 Urine Urobilinogen Norm mg/dL (Negative) 11/25/23 10:27 Ur Leukocyte Esterase Negative (Negative) 11/25/23 10:27 Urine HCG, Qual Negative (Negative) 11/30/23 06:58 Blood Type A Positive 11/30/23 06:30 Rho(D) Type Rh positive 11/30/23 06:30 Antibody Screen Negative 11/30/23 06:30 Vitals Last Vital Signs Temp 98.6 F 12/01/23 07:14 Pulse 78 12/01/23 07:14 Resp 15 12/01/23 07:14 BP 119/74 12/01/23 07:14 Pulse Ox 98 12/01/23 07:14 O2 Del Method Room Air 12/01/23 07:14 O2 Flow Rate 1 11/30/23 10:14 Results Labs OB ([facility]): Blood Type A Positive 11/30/23 Antibody Screen Negative 11/30/23 Hct 28.8 % (36-47) L 12/01/23 Hgb 8.80 g/dL (11.27-16.99) L 12/01/23 Rho(D) Type Rh positive 11/30/23 Plt Count 303 10^3/cmm (157-399) 12/01/23 Hep Bs Antigen Non-reactive (Nonreactive) 05/13/23 Hepatitis C Antibody Non-reactive (Nonreactive) 05/13/23 HIV 1&2 Ab & HIV 1 Ag Non-reactive (Non-Reactiv) 05/13/23 C.trachomatis RNA (TMA) Not detected (NOT DETECTED) N.gonorrhoeae RNA (TMA) Not detected (NOT DETECTED) T. vaginalis Amp RNA Not detected (NOT DETECTED) 10/29/23 Chlamydia/GC Comment See note 10/29/23 Ser , Semi-Qnt 1.00 mIU/mL 03/25/23 HCG, Qual Negative (Negative) 12/08/20 Micro Urine Specimen 07/06/21 Pap Smear Interpret See note 03/25/23 Free Testosterone 4.4 pg/mL (0.2-5.0) 03/25/23 Prolactin 7.09 ng/mL (4.8-23.3) 03/25/23 Discharge Plan Discharge Patient Disposition: Home Condition: Stable Prescriptions: New hydrocodone-acetaminophen 5-325 mg tablet 1 tab PO Q4H PRN (Reason: pain) Qty: 20 0RF ibuprofen 800 mg tablet 800 mg PO TID PRN (Reason: pain) Qty: 60 0RF acetaminophen 325 mg capsule 325 mg PO Q4H PRN (Reason: fever or pain) Qty: 60 0RF Continued ibuprofen 800 mg tablet 800 mg PO TID Qty: 90 3RF drospirenone-ethinyl estradiol 3-0.03 mg tablet 1 tab PO DAILY Discharge Orders: Discharge Order (Routine); Ordered 12/01/23 Ordered By: Filiberto Edwards Discharge Diet: Usual diet Discharge Activity: Limit activity as instructed Patient Instructions: Opioid Safety, Vaginal Hysterectomy (GEN), Hysterectomy (GEN) Activity Restrictions/Additional Instructions: 1. Please call [facility] on next working day to make your post-operative appointment in 2 weeks. 2. Please stay home until you come back to the clinic on first post- hospatilization check up. 3. Please follow instructions on your medications CAREFULLY. 4. If you have abdominal incision, do not cover it unless dressing is necessary because of drainage. OK to shower, but avoid bath. Leave steri-strips until they fall off. If they are still on one week after surgery, you may remove them. 5. If you had vaginal surgery or vaginal repair, Dr. Edwards may instruct you to take SITZ bath. 6. Yellow, blood tinged odorous vaginal discharge is usually normal after hysterectomy or vaginal surgeries. 7. No SEXUAL INTERCOURSE, tampons, or douches until you are completely released from the post-operative care. 8. Avoid constipation by eating right and maybe using some Metamucil or Milk of Magnesia. 9. All prescription refills are given during the working hours. Please do no wait till it runs out. Call the clinic at [phone] before your medication runs out. The clinic will get in touch with your doctor to prescribe medications if necessary. 10. Please remain within 40 mile radius from our hospital because emergencies do happen now and then during the post-operative period. 11. If you have stairs at home, take one step at a time slowly and minimize the number of trips. It helps to stay in one floor for the next few days. No lifting except what you can lift by one hand until you are released from the post-operative care. 12. Driving is discouraged until you are well healed. It may be 3-4 weeks before you feel strong enough to drive. You should be able to turn and look through the rear window without pain and you should be able to push the brake pedal very hard without pain before you drive. No fast rules, but SAFETY should be your primary concern. DO NOT drive if you are on sedating medications such as narcotics. 13. Call the clinic (during working hours) to make urgent appointment or go to the Emergency room, if any of the following occurs: i. Vaginal bleeding becomes heavy, more than a period. ii. Incision becomes red and sore, or drains pus. iii. Your TEMPERATURE is over 100.4F or you have chill. iv. IV site becomes red and swollen (a little ``knot?? is usually OK) v. Persistent nausea and vomiting vi. Persistent constipation or diarrhea vii. Rash or allergic reaction to medications. 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
[2023-12-01 10:21] VITALS: BP 119/74; PULSE 78; RESP 15; TEMP 37; O2SAT 98
== END 2023-12-01 10:23 | disposition home or self-care (01) ==
LOC: MEDSURG 09:31
PROVIDERS: Admitting Provider Obstetrics & Gynecology; PCP Nurse Practitioner; Visit Provider Obstetrics & Gynecology
PROC: (CPT 58260; principal; 2023-11-30 07:00)
DX: E28.2 Polycystic ovarian syndrome (principal); N94.6 Dysmenorrhea, unspecified; E66.01 Morbid (severe) obesity due to excess calories; Z68.41 Body mass index [BMI] 40.0-44.9, adult
CPT/HCPCS: 58260; 36415; 80053; 81003; 81025; 84703; 85025; 85027; 86850; 86900; 88307; G0378; J0330; J0690; J1100; J1170; J1200; J1885; J2250; J2405; J2704; J2710; J3010; J3490; J7030; J7040; J7121

== ENCOUNTER 2023-12-10 18:05 | Emergency (ER) | payer MEDICAID, SELFPAY ==
[2023-12-10 19:02] VITALS: BP 131/84; PULSE 115; RESP 18; TEMP 36.9; O2SAT 97; BMI 40.9
== END 2023-12-10 20:00 | disposition left against medical advice (07) ==
LOC: ER 18:10
PROVIDERS: Emergency Provider Family Medicine; PCP Nurse Practitioner
DX: Z53.21 Procedure and treatment not carried out due to patient leaving prior to being seen by health care provider (principal)

== ENCOUNTER → 2024-01-25 09:58 | Outpatient (BNVA) | payer MEDICAID, SELFPAY | PROVIDERS: PCP Nurse Practitioner; Referring Provider Nurse Practitioner; Visit Provider Student in an Organized Health Care Education/Training Program | DX: M75.21 Bicipital tendinitis, right shoulder; S29.011A Strain of muscle and tendon of front wall of thorax, initial encounter; X58.XXXA Exposure to other specified factors, initial encounter | CPT/HCPCS: 73030 ==

== ENCOUNTER 2024-10-19 16:06 | Outpatient (CLI) | payer MEDICAID, SELFPAY ==
[2024-10-19 16:57] LABS: Hematocrit 38.2 % (36-47); Mean Corpuscular HGB Conc 30.1 g/dL (30-55); Mean Corpuscular Hemoglobin 22.9 pg (27-33); Mean Corpuscular Volume 76.1 fl (85-98); Platelet Count 313 10^3/cmm (157-399); Red Blood Count 5.02 10^6/uL (3.85-5.65); Red Cell Distribution Width 15.6 % (12.1-15.1); White Blood Count 9.51 10^3/uL (3.29-11.43)
[2024-10-19 17:41] LABS: Alanine Aminotransferase 24 U/L (0-33); Albumin Level 4.1 g/dL (3.5-5.2); Alkaline Phosphatase 63 U/L (35-105); Anion Gap 12.8 (5-19); Aspartate Amino Transferase 15 U/L (0-32); Blood Urea Nitrogen 11 mg/dL (6-20); Calcium 9.1 mg/dL (8.5-10.5); Carbon Dioxide 25 mmol/L (22-29); Chloride 106 mmol/L (98-107); Ferritin 9 ng/mL (15-150); Globulin 2.8 g/dL (1.3-4.6); Glomerular Filtration Rate 144.9 mL/min (90-130); Glucose 141 mg/dL (65-115); Iron 32 ug/dL (37-145); Osmolality Calculated 292 mOsm/kg (285-295); Percent Saturation 7.7 % (20-50); Potassium 3.8 mmol/L (3.5-5.1); Sodium 140 mmol/L (136-145); Total Bilirubin 0.2 mg/dL (0.15-1.2); Total Iron Binding Capacity 414 mcg/dl; Total Protein 6.9 g/dL (6.6-8.7); Unsaturated Iron Binding 382 ug/dL (112-347)
[2024-10-19 18:38] LABS: Total Cells Counted 100 (0-100)
[2024-10-19 18:43] LABS: Absolute Eosinophils 0.5 10^3/cmm (0.0-0.7); Absolute Neutrophil 5.3 10^3/cmm (1.4-6.5); Absolute Segmented Neutrophil 5.3 10/cmm (1.6-7.1); Eosinophils 5 %; Lymphocytes 37 %; Lymphocytes Absolute 3.6 10^3/cmm (1.2-3.4); Monocytes Absolute 0.1 10^3/cmm (0.1-0.6); Platelet Estimate Normal (Normal); Segmented Neutrophils 56 %
[2024-10-19 18:44] LABS: Anisocytosis 1+; Giant Platelets Trace; Microcytosis Trace
[2024-10-19 20:06] LABS: Estmated Average Glucose 134; Hemoglobin A1C 6.3 % (4.0-6.0)
== END 2024-10-19 16:07 | disposition home or self-care (01) ==
LOC: LAB 16:08
PROVIDERS: PCP Nurse Practitioner; Visit Provider Nurse Practitioner
DX: D50.9 Iron deficiency anemia, unspecified (principal); E11.65 Type 2 diabetes mellitus with hyperglycemia
CPT/HCPCS: 36415; 80053; 82728; 83036; 83540; 83550; 85007; 85027

== ENCOUNTER → 2024-11-21 13:41 | Outpatient (BNVA) | payer MEDICAID, SELFPAY | PROVIDERS: PCP Nurse Practitioner; Referring Provider Nurse Practitioner; Visit Provider Student in an Organized Health Care Education/Training Program | DX: M79.641 Pain in right hand (principal); M79.642 Pain in left hand; G56.03 Carpal tunnel syndrome, bilateral upper limbs | CPT/HCPCS: 73130 ==

== ENCOUNTER → 2025-01-08 15:57 | Outpatient (BNVA) | payer MEDICAID, SELFPAY | PROVIDERS: PCP Nurse Practitioner; Visit Provider Nurse Practitioner Women's Health | DX: Z11.3 Encounter for screening for infections with a predominantly sexual mode of transmission (principal) | CPT/HCPCS: 86592; 86803; 87340; 87491; 87591; 87661; 87806 ==

== ENCOUNTER 2025-02-02 06:41 | Day surgery (SDC) | payer MEDICAID, SELFPAY ==
[2025-02-02 06:53] VITALS: BP 126/102; PULSE 90; RESP 16; TEMP 36.4; O2SAT 97
[2025-02-02 06:56] VITALS: BMI 44.5
--- NOTE | 2025-02-02 06:59 | P.HPUD_ITS ---
Surgery/Procedure H&P Update DATE OF PROCEDURE: February 02, 2025 DATE H&P PERFORMED: 01/03/25 H&P UPDATE INFORMATION: I have reviewed H&P completed within last 30 days, I have examined patient prior to procedure and No changes to prior documentation CHANGES TO PREVIOUS DOCUMENTATION: Patient at this point in time had family circumstances change where her mom is in the hospital she would like to just do 1 side today as far as getting her ri ght side done first since it is her worst. She went to have 1 good hand free in case she needs to take care of her mom at this point time we adjusted her consent appropriately and we will proceed with a right carpal tunnel release today once again she understands the incidence procedure risk benefits complication alternatives of surgery shared decision-making elects proceed with surgical intervention today all questions answered. PREOP DIAGNOSIS: Right carpal tunnel syndrome PRIMARY INDICATION FOR PROCEDURE: Right carpal tunnel syndrome PLANNED PROCEDURE: Operation Date: 02/02/25 10:15 Proposed Procedures p Carpal Tunnel Release(Bilateral) - Jacob Jason DO
--- NOTE | 2025-02-02 07:17 | ANES.PREANE2 ---
Pre-Anesthetic Assessment Height/Weight: Height 5 ft 6 in Weight 276 lb Temp Pulse Resp BP Pulse Ox O2 Del Method 97.6 F 90 16 126/102 97 Room Air 02/02/25 06:53 02/02/25 06:53 02/02/25 06:53 02/02/25 06:53 02/02/25 06:53 02/02/25 06:53 Preop Diagnosis: Right carpal tunnel syndrome Operation Date: 02/02/25 10:15 Proposed Procedures p Carpal Tunnel Release(Bilateral) - Jacob Jason, DO Was Beta Briseyda taken within 24 hours: N/A Was Clonidine taken within 24 hours: N/A Last intake: Intake Last Liquid Date 02/01/25 Last Liquid Time 19:30 Last Solid Date 02/01/25 Last Solid Time 23:00 Social No alcohol and No tobacco Exam alert, oriented x 3, clear to auscultation bilaterally and regular rate & rhythm Airway Submandibular: within normal limits Cervical ROM: within normal limits Mallampati: Class III Dentition: full Anesthetic Plan ASA status: 3 Anesthesia: MAC Other: No prior issues with anesthesia NPO since yesterday evening History of type 2 diabetes, on Ozempic. Last taken 01/26/2025 Bipolar disorder METs greater than 4 Plan for MAC anesthesia with local via surgeon Medications/Allergies Home Medications ?Medication ?Instructions ?Recorded ?Confirmed ?Last Taken ?Type ferrous sulfate 325 mg (65 mg 325 mg PO BID #60 tabs 12/17/23 02/01/25 02/01/25 Rx iron) tablet Bilateral Cock Up Wrist Brace #1 ea 11/21/24 01/08/25 Unknown Rx semaglutide 0.25 mg or 0.5 mg (2 0.25 mg SUBCUT 02/01/25 01/26/25 History mg/3 mL) subcutaneous pen injector (Ozempic) Allergies Allergy/AdvReac Type Severity Reaction Status Date / Time No Known Allergies Allergy Verified 02/02/25 06:51 [facility] Anesthesia Medical History Hypertriglyceridemia No pertinent past medical history neghx: htn,thyroid,dvt/pe PCP: Tiera De La Rosa Pre-diabetes Surgical History Status post vaginal hysterectomy (~11/30/23) TVH performed by Dr. Edwards at [facility] for PP, dysmenorrhea, PCOS. Benign pathology History of tonsillectomy and adenoidectomy H/O tubal ligation (~2017) Performed by Dr. Card at [facility] in [place], [place] Family History Grandmother Breast cancer Maternal Diabetes Ovarian cancer maternal Mother Heart disease Hyperlipidemia Hypertension Thyroid disease Brother Hypertension Sister Hypertension Hyperlipidemia Grandfather Colon cancer maternal Denies family history of Prostate cancer Uterine cancer Stroke Social History Smoking and tobacco/nicotine status: never used tobacco/nicotine
[2025-02-02] MEDS: ketorolac 30 mg/mL INJ IVP (07:20)
[2025-02-02] MEDS: sodium chloride 0.9% 1,000 ML 30 ML IV (07:25)
--- NOTE | 2025-02-02 07:28 | PC.NURSE ---
initial blood pressure 125/102, recheck on opposite arm 134/105. Anesthesia made aware by nurse at bedside.
--- NOTE | 2025-02-02 07:29 | PC.NURSE ---
Dr. Jason at bedside discussing procedure. Pt expressed that she want only right hand done today dt family reasons. Eren and patient initialled consent change to only right hand NOT bilateral.
[2025-02-02] MEDS: ceFAZolin 2,000 MG in sodium chloride 0.9% (plus) 50 ML 100 MG IV (07:52)
[2025-02-02] MEDS: ROPivacaine 0.5% SDV 30 mL 30 MG INJECTION (08:00)
[2025-02-02] MEDS: lidocaine-epi 1% PF 1:200,000 30 mL SDV 5 ML INJECTION (08:00)
--- NOTE | 2025-02-02 08:16 | P.BOP_ITS ---
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
--- NOTE | 2025-02-02 08:17 | PM.OP ---
Operative Report Date of procedure: February 02, 2025 Surgeon: Jacob Jason DO Procedure: Preop Diagnosis: Right Carpal Tunnel Syndrome Post-op diagnosis: Same Procedure done: 1. Right carpal tunnel release Surgeon: Jacob Jason DO Anesthesia: MAC (Local) Estimated blood loss: 2 mL Tourniquet time 5 minutes IV fluids: See anesthesia record Complications: None Findings: See operative report narrative Condition: stable Disposition: same day Brief History: Patient is a pleasant 29 year-old female with right carpal tunnel syndrome. Patient has been worked up in the outpatient setting findings and physical examination consistent with this. Patient nerve conduction studies consistent with carpal tunnel syndrome. We detailed out patient's risk benefits complication alternatives with surgical and nonsurgical treatment options. Through shared decision making, patient agrees to proceed with surgical intervention of the right carpal tunnel release . Patient understands and agrees with current plan. All questions answered. Patient elects to proceed with surgical intervention with carpal tunnel release. Procedure: Patient seen and evaluated in the preoperative holding area. Consent was reviewed and signed with patient. Correct extremity was marked. Patient was seen evaluated by the anesthesia department once cleared for surgery was brought back to the operative suite. Patient was kept on [facility] in supine position all bony prominences were well-padded patient properly secured to the bed. Right upper extremity was then placed onto an armboard. A nonsterile tourniquet was applied to the Right upper arm. Patient underwent anesthesia per the anesthesia department. Patient's Right upper extremity was then prepped and draped in standard orthopedic fashion. Final timeout performed. Patient received appropriate preoperative antibiotics. Under sterile aseptic technique patient received local anesthesia over the preplanned carpal tunnel incision site. Esmarch was used to exsanguinate the Right upper extremity and tourniquet was insufflated to 250 mmHg. A standard mini open Right carpal tunnel incision was made. Starting distally at Waggoner's cardinal line in line with the fourth ray extending proximally distal to the wrist crease centered over the carpal tunnel. Sharp scalpel incision was made through skin and subcutaneous tissue. Self-retaining retractor was placed and the palmar fascia was identified. This was then split longitudinally and direct visualization of the transverse carpal ligament was then made. I then utilizing scalpel feathered through the transverse carpal ligament until I entered the floor of the transverse carpal tunnel ligament into the carpal tunnel. Next I switched to dissection scissors and completed my release of the transverse carpal ligament distally with care to protect the recurrent motor branch. I completely released into the palmar fat and until no entrapment was noted distally. Care was made to protect the superficial palmar arch during my distal dissection. Next I utilized a nasal speculum placed on top of the transverse carpal ligament and utilize this to retract the subcutaneous fat and tissue and under direct loupe magnification was able to identify the transverse carpal ligament. Next I then protected the contents of the carpal tunnel and subsequently utilizing dissection scissors under loupe magnification completely released the transverse carpal ligament proximally into the antebrachial fascia. Care was made to protect the palmar cutaneous branch by keeping my scissors curved ulnarly. Once completely released, I then placed my [place] and had appropriate decompression of the carpal tunnel proximally as well as distally. I then inspected the contents of the carpal tunnel which showed an hourglass shape of the median nerve showing its compression. No masses were noted. Tendons appeared healthy. Wound was then thoroughly irrigated. Tourniquet deflated. Hemostasis satisfactory with bipolar electrocautery. I then closed the incision with interrupted nylon stitches. Xeroform 4 x 4's and a bulky soft dressing was applied. Patient was then awakened from anesthesia and taken to PACU in stable condition. Patient tolerated procedure without complications. Disposition: Patient taken to PACU in stable condition recovering well. Dressing clean dry and intact. Patient will receive appropriate discharge instructions as well as pain medication postoperatively. Patient to follow-up with me in the office in 2 weeks. They understand they may be weightbearing as tolerated to the right hand. Patient should keep incision clean dry and intact. Patient understands if any questions or concerns may contact the office.
[2025-02-02 08:20] VITALS: BP 107/56; PULSE 90; RESP 16; TEMP 36.2; O2SAT 97
[2025-02-02 08:23] LABS: Glucose Point of Care 131 mg/dL (70-110)
[2025-02-02 08:25] VITALS: BP 120/72; PULSE 84; RESP 16; O2SAT 96
[2025-02-02 08:30] VITALS: BP 116/66; PULSE 80; RESP 16; TEMP 36.4; O2SAT 97
[2025-02-02 08:34] VITALS: BP 109/70; PULSE 82; RESP 16; TEMP 36.6; O2SAT 97
[2025-02-02] MEDS: TRAMadol 50 mg Tablet PO (08:45)
[2025-02-02 08:47] VITALS: BP 135/73; PULSE 78; RESP 16; TEMP 36.4; O2SAT 97
--- NOTE | 2025-02-02 09:01 | ANE.PACU2 ---
Inpatient post-anesthesia follow up: Airway intact: Yes Vital signs: Temperature 97.5 F Pulse Rate 78 Respiratory Rate 16 Blood Pressure 135/73 Pulse Oximetry 97 Oxygen Delivery Me thod Room Air Oxygen Flow Rate Fraction of Inspir ed Oxygen Hydration adequate: Yes Nausea and vomiting: No Pain level: 1 Mental status: Baseline
== END 2025-02-02 09:03 | disposition home or self-care (01) ==
PROVIDERS: PCP Nurse Practitioner; Visit Provider Student in an Organized Health Care Education/Training Program
PROC: (CPT 64721; principal; 2025-02-02 09:35)
DX: G56.01 Carpal tunnel syndrome, right upper limb (principal); E11.9 Type 2 diabetes mellitus without complications; E78.1 Pure hyperglyceridemia
CPT/HCPCS: 64721; 36416; 82962; J0690; J1885; J2704; J2795; J3010; J7030; J9999

== ENCOUNTER 2025-03-02 07:58 | Day surgery (SDC) | payer MEDICAID, SELFPAY ==
[2025-03-02] VITALS (8 sets, daily range): BP systolic 132–169; BP diastolic 78–113; PULSE 79–93; RESP 16–18; TEMP 36.1–36.3; O2SAT 91–96; BMI 44.4
--- NOTE | 2025-03-02 06:22 | ANES.PREANE2 ---
Pre-Anesthetic Assessment Height/Weight: Height 5 ft 6 in Preop Diagnosis: Carpal tunnel syndrome Operation Date: 03/02/25 10:00 Proposed Procedures p LEFT Carpal Tunnel Release(Left) - Jacob Jason, Social No alcohol and No tobacco Exam alert, oriented x 3, clear to auscultation bilaterally and regular rate & rhythm Airway Submandibular: within normal limits Cervical ROM: within normal limits Mallampati: Class II Dentition: full Anesthetic Plan ASA status: 2 Anesthesia: MAC Other: No prior issues with anesthesia NPO since yesterday evening Patient states that she has a stuffy nose right now and had a temp of 99.7 yesterday. Afebrile today. Feels this is due to allergies. Breath sounds clear Patient has prediabetes, on Ozempic. Last taken 02/24/2025 Denies any cardiac or pulmonary issues METs greater than 4 Plan for MAC anesthesia with local via surgeon Medications/Allergies Home Medications ?Medication ?Instructions ?Recorded ?Confirmed ?Last Taken ?Type Bilateral Cock Up Wrist Brace #1 ea 11/21/24 02/21/25 Unknown Rx semaglutide 0.25 mg or 0.5 mg (2 0.25 mg SUBCUT .WEEK 02/01/25 03/01/25 02/23/25 17:00 History mg/3 mL) subcutaneous pen injector (Ozempic) ferrous sulfate 325 mg (65 mg 325 mg PO EVERY OTHER DAY 03/01/25 03/01/25 03/01/25 10:00 History iron) tablet tramadol 50 mg tablet 50 mg PO Q6H PRN pain 5 days #20 03/02/25 Unknown Rx tabs Allergies Allergy/AdvReac Type Severity Reaction Status Date / Time No Known Allergies Allergy Verified 03/02/25 08:08 [facility] Anesthesia Medical History Hypertriglyceridemia No pertinent past medical history neghx: htn,thyroid,dvt/pe PCP: Tiera De La Rosa Pre-diabetes Surgical History (Updated 02/21/25 @ 14:16 by CRA Lira) Status post vaginal hysterectomy (~11/30/23) TVH performed by Dr. Edwards at [facility] for PP, dysmenorrhea, PCOS. Benign pathology History of tonsillectomy and adenoidectomy H/O tubal ligation (~2017) [place]. Card [place] [facility] [place] Family History Grandmother Breast cancer Maternal Diabetes Ovarian cancer maternal Mother Heart disease Hyperlipidemia Hypertension Thyroid disease Brother Hypertension Sister Hypertension Hyperlipidemia Grandfather Colon cancer maternal Denies family history of Prostate cancer Uterine cancer Stroke Social History Smoking and tobacco/nicotine status: never used tobacco/nicotine
[2025-03-02] MEDS: acetaminophen 1,000 MG/100 ML PIGGYBACK 400 MG IV (08:20)
--- NOTE | 2025-03-02 09:27 | W.PM.OPSUD ---
Surgery/Procedure H&P Update DATE OF PROCEDURE: March 02, 2025 DATE H&P PERFORMED: 02/21/25 H&P UPDATE INFORMATION: I have reviewed H&P completed within last 30 days, I have examined patient prior to procedure and No changes to prior documentation PREOP DIAGNOSIS: Left carpal tunnel syndrome PRIMARY INDICATION FOR PROCEDURE: Left carpal tunnel syndrome PLANNED PROCEDURE: Operation Date: 03/02/25 10:00 Proposed Procedures p LEFT Carpal Tunnel Release(Left) - Jacob Jason DO
[2025-03-02] MEDS: ceFAZolin 2,000 MG in sodium chloride 0.9% (plus) 50 ML 100 MG IV (09:35)
[2025-03-02] MEDS: lidocaine-epi 1% PF 1:200,000 30 mL SDV 5 ML INJECTION (09:44)
[2025-03-02] MEDS: ROPivacaine 0.5% SDV 30 mL 30 MG INJECTION (09:44)
--- NOTE | 2025-03-02 10:07 | W.PM.BPON ---
Date of Procedure: 03/02/2025 Surgeon: Jacob Jason DO Groundskeeper Porter(s): None Procedure(s) performed: Left carpal tunnel release Findings of the procedure(s): Underwent procedure as planned without issues or complications Estimated blood loss: 3 mL Specimen(s) removed: None Post-operative diagnosis: Left carpal tunnel syndrome
--- NOTE | 2025-03-02 10:08 | PM.OP ---
Operative Report Date of procedure: March 02, 2025 Surgeon: Jacob Jason DO Procedure: Preop Diagnosis: Left Carpal Tunnel Syndrome Post-op diagnosis: Same Procedure done: 1. Left carpal tunnel release Surgeon: Jacob Jason DO Anesthesia: MAC (Local) Estimated blood loss: 3 mL Tourniquet time 5 minutes IV fluids: See anesthesia record Complications: None Findings: See operative report narrative Condition: stable Disposition: same day Brief History: Patient is a pleasant 29 year-old female with left carpal tunnel syndrome. Patient has been worked up in the outpatient setting findings and physical examination consistent with this. Patient nerve conduction studies consistent with bilateral carpal tunnel syndrome. Patient is done well with her right side carpal tunnel release surgery to proceed with the left side today. We detailed out patient's risk benefits complication alternatives with surgical and nonsurgical treatment options. Through shared decision making, patient agrees to proceed with surgical intervention of the left carpal tunnel release . Patient understands and agrees with current plan. All questions answered. Patient elects to proceed with surgical intervention. Procedure: Patient seen and evaluated in the preoperative holding area. Consent was reviewed and signed with patient. Correct extremity was marked. Patient was seen evaluated by the anesthesia department once cleared for surgery was brought back to the operative suite. Patient was kept on [facility] in supine position all bony prominences were well-padded patient properly secured to the bed. Left upper extremity was then placed onto an armboard. A nonsterile tourniquet was applied to the left upper arm. Patient underwent anesthesia per the anesthesia department. Patient's left upper extremity was then prepped and draped in standard orthopedic fashion. Final timeout performed. Patient received appropriate preoperative antibiotics. Under sterile aseptic technique patient received local anesthesia over the preplanned carpal tunnel incision site. Esmarch was used to exsanguinate the left upper extremity and tourniquet was insufflated to 250 mmHg. A standard mini open left carpal tunnel incision was made. Starting distally at Waggoner's cardinal line in line with the fourth ray extending proximally distal to the wrist crease centered over the carpal tunnel. Sharp scalpel incision was made through skin and subcutaneous tissue. Self-retaining retractor was placed and the palmar fascia was identified. This was then split longitudinally and direct visualization of the transverse carpal ligament was then made. I then utilizing scalpel feathered through the transverse carpal ligament until I entered the floor of the transverse carpal tunnel ligament into the carpal tunnel. Next I switched to dissection scissors and completed my release of the transverse carpal ligament distally with care to protect the recurrent motor branch. I completely released into the palmar fat and until no entrapment was noted distally. Care was made to protect the superficial palmar arch during my distal dissection. Next, nasal speculum placed proximally for retraction of soft tissue on top of the Transverse carpal ligament. Next the contents of the carpal tunnel where protected and and subsequently utilizing dissection scissors under loupe magnification completely released the transverse carpal ligament proximally into the antebrachial fascia. Care was made to protect the palmar cutaneous branch by keeping my scissors curved ulnarly. Once completely released, I then placed my [place] and had appropriate decompression of the carpal tunnel proximally as well as distally. I then inspected the contents of the carpal tunnel which showed an hourglass shape of the median nerve showing its compression. No masses were noted. Tendons appeared healthy. Wound was then thoroughly irrigated. Tourniquet deflated. Hemostasis satisfactory with bipolar electrocautery. I then closed the incision with interrupted nylon stitches. Xeroform 4 x 4's and a bulky soft dressing was applied to the left upper extremity. Patient was then awakened from anesthesia and taken to PACU in stable condition. Patient tolerated procedure without complications. Disposition: Patient taken to PACU in stable condition recovering well. Dressing clean dry and intact. Patient will receive appropriate discharge instructions as well as pain medication postoperatively. Patient to follow-up with me in the office in 2 weeks. They understand they may be weightbearing as tolerated to the left hand. Patient should keep incision clean dry and intact. Patient understands if any questions or concerns may contact the office.
[2025-03-02] MEDS: HYDROcodone-acetaminophen 5-325 mg Tablet 1 TAB PO (10:38)
--- NOTE | 2025-03-02 10:51 | ANE.PACU2 ---
Inpatient post-anesthesia follow up: Airway intact: Yes Vital signs: Temperature 97.3 F Pulse Rate 79 Respiratory Rate 18 Blood Pressure 158/90 Pulse Oximetry 96 Oxygen Delivery Me thod Room Air Oxygen Flow Rate Fraction of Inspir ed Oxygen Hydration adequate: Yes Nausea and vomiting: No Pain level: 1 Mental status: Baseline
== END 2025-03-02 10:51 | disposition home or self-care (01) ==
PROVIDERS: PCP Nurse Practitioner; Visit Provider Student in an Organized Health Care Education/Training Program
PROC: (CPT 64721; principal; 2025-03-02 09:50)
DX: G56.02 Carpal tunnel syndrome, left upper limb (principal); R73.03 Prediabetes; E78.1 Pure hyperglyceridemia
CPT/HCPCS: 64721; 36416; 82962; J0131; J0690; J1100; J1885; J2405; J2704; J2795; J3010; J7030; J9999

== ENCOUNTER 2025-03-05 14:27 | Oncology outpatient (recurring) (ONCR) | payer MEDICAID, SELFPAY ==
[2025-03-05 14:57] LABS: Hematocrit 39.2 % (36-47); Hemoglobin 12.30 g/dL (11.27-16.99); Mean Corpuscular HGB Conc 31.4 g/dL (30-55); Mean Corpuscular Hemoglobin 23.8 pg (27-33); Mean Corpuscular Volume 76.0 fl (85-98); Nucleated Red Blood Cells % 0 %; Platelet Count 319 10^3/cmm (157-399); Red Blood Count 5.16 10^6/uL (3.85-5.65); White Blood Count 7.48 10^3/uL (3.29-11.43)
[2025-03-05 15:17] LABS: Alanine Aminotransferase 47 U/L (0-33); Albumin Level 4.2 g/dL (3.5-5.2); Alkaline Phosphatase 49 U/L (35-105); Anion Gap 17.2 (5-19); Aspartate Amino Transferase 38 U/L (0-32); Blood Urea Nitrogen 10 mg/dL (6-20); Calcium 9.4 mg/dL (8.5-10.5); Carbon Dioxide 26 mmol/L (22-29); Chloride 106 mmol/L (98-107); Creatinine Clr Calc Pharmacy 182.6419; Ferritin 34 ng/mL (15-150); Globulin 3.2 g/dL (1.3-4.6); Glucose 100 mg/dL (65-115); Iron 48 ug/dL (37-145); Osmolality Calculated 299 mOsm/kg (285-295); Potassium 4.2 mmol/L (3.5-5.1); Sodium 145 mmol/L (136-145); Total Iron Binding Capacity 388 mcg/dl; Total Protein 7.4 g/dL (6.6-8.7); Unsaturated Iron Binding 340 ug/dL (112-347)
== END 2025-03-08 23:59 | disposition home or self-care (01) ==
PROVIDERS: PCP Nurse Practitioner; Visit Provider Internal Medicine Medical Oncology
DX: D64.9 Anemia, unspecified (principal)
CPT/HCPCS: 36415; 80053; 82728; 83540; 83550; 85025

== ENCOUNTER 2025-03-26 12:30 | Oncology outpatient (recurring) (ONCR) | payer MEDICAID, SELFPAY ==
[2025-03-16 09:40] VITALS: BP 113/80; PULSE 80; RESP 17; TEMP 36.4; O2SAT 96
[2025-03-16] MEDS: ferumoxytol (NON-ESRD) 510 MG in sodium chloride 0.9% (100 ml) 100 ML 351 MG IV (09:42)
[2025-03-16 10:25] VITALS: BP 128/84; PULSE 83; RESP 16; TEMP 36.1; O2SAT 96
[2025-03-26 13:15] VITALS: BP 115/81; PULSE 76; RESP 17; TEMP 36.6; O2SAT 96
[2025-03-26] MEDS: ferumoxytol (NON-ESRD) 510 MG in sodium chloride 0.9% (100 ml) 100 ML 351 MG IV (13:31)
[2025-03-26 14:02] VITALS: BP 115/75; PULSE 75; RESP 18; TEMP 36.3; O2SAT 96
== END 2025-04-08 23:59 | disposition home or self-care (01) ==
PROVIDERS: PCP Nurse Practitioner; Visit Provider Internal Medicine Medical Oncology
DX: D64.9 Anemia, unspecified (principal)
CPT/HCPCS: 96365; J7050; Q0138

== ENCOUNTER → 2025-05-29 13:43 | Outpatient (BNVA) | payer MEDICAID, SELFPAY | PROVIDERS: PCP Nurse Practitioner | DX: R50.9 Fever, unspecified (principal) | CPT/HCPCS: 87400; 87426 ==

== ENCOUNTER 2025-06-12 12:57 | Oncology outpatient (recurring) (ONCR) | payer MEDICAID, SELFPAY ==
[2025-06-12 13:25] LABS: Hematocrit 40.8 % (36-47); Hemoglobin 13.70 g/dL (11.27-16.99); Mean Corpuscular HGB Conc 33.6 g/dL (30-55); Mean Corpuscular Hemoglobin 26.8 pg (27-33); Mean Corpuscular Volume 79.7 fl (85-98); Nucleated Red Blood Cells % 0 %; Platelet Count 281 10^3/cmm (157-399); Red Blood Count 5.12 10^6/uL (3.85-5.65); White Blood Count 9.54 10^3/uL (3.29-11.43)
[2025-06-12 13:56] LABS: Alanine Aminotransferase 50 U/L (0-33); Albumin Level 4.2 g/dL (3.5-5.2); Alkaline Phosphatase 51 U/L (35-105); Aspartate Amino Transferase 33 U/L (0-32); Blood Urea Nitrogen 13 mg/dL (6-20); Calcium 9.4 mg/dL (8.5-10.5); Carbon Dioxide 25 mmol/L (22-29); Chloride 105 mmol/L (98-107); Ferritin 230 ng/mL (15-150); Globulin 3.2 g/dL (1.3-4.6); Glucose 92 mg/dL (65-115); Iron 68 ug/dL (37-145); Osmolality Calculated 292 mOsm/kg (285-295); Sodium 141 mmol/L (136-145); Total Iron Binding Capacity 276 mcg/dl; Total Protein 7.4 g/dL (6.6-8.7); Unsaturated Iron Binding 208 ug/dL (112-347)
[2025-06-12 13:59] LABS: Anion Gap 15.0 (5-19); Potassium 4.0 mmol/L (3.5-5.1)
== END 2025-07-08 23:59 | disposition home or self-care (01) ==
PROVIDERS: PCP Nurse Practitioner; Visit Provider Internal Medicine Medical Oncology
DX: D50.9 Iron deficiency anemia, unspecified (principal)
CPT/HCPCS: 36415; 80053; 82728; 83540; 83550; 85025